=== PATIENT | female | born 1930 | race Caucasian/White ===

== ENCOUNTER 2016-09-22 08:38 | Emergency (ER) | payer MEDICARE, OTHER ==
[2016-09-22 08:44] VITALS: BP 168/86
--- NOTE | 2016-09-22 09:18 | EDM.PDOC ---
ED HPI GI/ABDOMINAL - General Chief Complaint: Abdominal Pain Stated Complaint: PAIN IN LOWER RT SIDE Time Seen by Provider: 09/22/16 09:00 Source of Information: Reports: Patient History Limitations: Reports: No limitations - History of Present Illness INITIAL COMMENTS - FREE TEXT/NARRATIVE: Patient presents today with right lower abdominal pain. States started noting increased discomfort yesterday but became much more severe at a 10/10 during the night. Patient has been having problems with burning and abdominal pain with urination during the night for several days now but this was more intense. No fevers. Nausea and dry heaves but no vomiting. Had a good appetite prior to this. Had a BM today which was normal. Feels bloated and has increased gas. History of appendectomy. Has had ovarian cyst on the left, no complication on the right. Symptom Onset Date: 09/21/16 Timing/Duration: Reports: Hour(s): Quality: Reports: burning, cramping, fullness Severity: severe Context: Denies: bad/questionable food, out of country travel, recent trauma, lifting Associated Symptoms (-Female): Reports: nausea/vomiting. Denies: chest pain, back pain, groin pain, shoulder pain, diarrhea, bloody stools, fever/chills, loss of appetite - Related Data Allergies/ADRs: Allergies Allergy/AdvReac Type Severity Reaction Status Date / Time No Known Allergies Allergy Verified 09/22/16 08:44 Home Meds: Home Meds Alendronate [Fosamax] 70 mg PO Q7D 09/22/16 [History] Aspirin [Adult Low Dose Aspirin EC] 81 mg PO DAILY 09/22/16 [History] Atropine 1% [Isopto Atropine 1% Ophth Soln] 1 drop EYERT Q48H 09/22/16 [History] Bimatoprost [LUMIGAN 0.01% Ophth Soln] 1 drop EYEBOTH QPM 09/22/16 [History] Brimonidine Tartrate [Alphagan P 0.1% Ophth Soln] 1 drop EYEBOTH BID 09/22/16 [ History] Cholecalciferol (Vitamin D3) [Vitamin D3] 1,000 units PO DAILY 09/22/16 [History ] Dorzolamide [Trusopt 2% Ophth Soln] 1 drop EYERT BID 09/22/16 [History] Levothyroxine [Synthroid] 50 mcg PO ACBREAKFAST 09/22/16 [History] Losartan [Cozaar] 50 mg PO DAILY 09/22/16 [History] Timolol [Betimol] 1 drop EYERT BID 09/22/16 [History] atorvaSTATin [Lipitor] 40 mg PO DAILY 09/22/16 [History] prednisoLONE Acetate [Prednisolone Acetate] 1 drop EYEBOTH QID 09/22/16 [History ] Past Medical History HEENT History: Reports: Impaired vision Cardiovascular History: Reports: Hypertension Gastrointestinal History: Reports: Hiatal hernia Endocrine/Metabolic History: Reports: Hypothyroidism - Past Surgical History HEENT Surgical History: Reports: Cataract surgery, Eye surgery GI Surgical History: Reports: Appendectomy, Junior fundoplication, Small bowel Female Surgical History: Reports: Hysterectomy ED ROS GENERAL - Review of Systems Review Of Systems: See Below Constitutional: Denies: fever, chills, malaise, weakness, decreased appetite HEENT: Denies: Ear discharge, Ear pain, Sinus problem, Throat pain, Vertigo Respiratory: Denies: Shortness of Breath, Cough Cardiovascular: Denies: Chest pain, Edema, Lightheadedness Endocrine: Denies: fatigue GI/Abdominal: Reports: Abdominal pain, Nausea. Denies: Constipation, Diarrhea, Hematochezia, Melena : Reports: dysuria, frequency Musculoskeletal: Reports: no symptoms Skin: Reports: no symptoms Neurological: Reports: No Symptoms ED EXAM, GI/ABD - Physical Exam Exam: See Below Exam Limited By: No limitations General Appearance: alert, WD/WN, no apparent distress Eyes: bilateral: normal appearance Ears: normal external exam, normal TMs Nose: normal inspection Throat/Mouth: Normal inspection, Normal oropharynx Head: normocephalic Neck: normal inspection, supple, non-tender Respiratory/Chest: no respiratory distress, lungs clear, normal breath sounds Cardiovascular: normal peripheral pulses, regular rate, rhythm GI/Abdominal: normal bowel sounds, soft Course - Vital Signs Last Recorded V/S: Last Vital Signs Temp 97.6 F 09/22/16 08:39 Pulse 111 H 09/22/16 08:39 Resp 20 09/22/16 08:39 BP 168/86 H 09/22/16 08:39 Pulse Ox 95 09/22/16 08:39 - Orders/Labs/Meds Orders: Active Orders 24 hr Category Date Time Status Abdomen 2V AP Flat Upright [CR] Stat Exams 09/22/16 08:53 Taken Labs: Laboratory Tests 09/22/16 09/22/16 09/22/16 Range/Units 08:51 08:52 08:53 WBC 10.3 H (5.0-10.0) 10^3/uL RBC 4.42 (4.00-5.50) 10^6/uL Hgb 13.7 (12.0-16.0) g/dL Hct 41.0 (37.0-47.0) % MCV 92.8 (82.0-94.0) fL MCH 31.0 (27.0-32.0) pg MCHC 33.4 (33.0-38.0) g/dL RDW Coeff of Brynn 13.4 (11.0-15.0) % Plt Count 232 (150-400) 10^3/uL Neut % (Auto) 86.2 H (35-85) % Lymph % (Auto) 5.8 L (10-55) % [place] % (Auto) 6.8 (0-16) % Eos % (Auto) 1.1 (0-5) % Baso % (Auto) 0.1 (0-3) % Neut # (Auto) 8.91 H (1.80-7.00) 10^3/uL Lymph # (Auto) 0.60 L (1.00-4.80) 10^3/uL [place] # (Auto) 0.70 (0.00-0.80) 10^3/uL Eos # (Auto) 0.11 (0.00-0.45) 10^3/uL Baso # (Auto) 0.01 10^3/uL Sodium 142 (136-145) mEq/L Potassium 4.1 (3.5-5.0) mEq/L Chloride 107 H (98-106) mEq/L Carbon Dioxide 28 (21-32) mmol/L BUN 26 H (7-18) mg/dL Creatinine 1.2 H (0.6-1.0) mg/dL Est Cr Clr Drug Dosing 32.67 mL/min Estimated GFR (MDRD) 43 L (>=60) mL/min Glucose 123 H (75-99) mg/dL Calcium 9.4 (8.4-10.1) mg/dL Total Bilirubin 0.5 (0.0-1.0) mg/dL AST 24 (15-37) U/L ALT 20 (12-78) U/L Alkaline Phosphatase 96 (46-116) U/L C-Reactive Protein < 0.2 L (0.2-0.8) mg/dL Total Protein 7.4 (6.4-8.2) g/dL Albumin 3.7 (3.4-5.0) g/dL Urine Color Yellow (YELLOW) Urine Appearance Slightly cloudy (CLEAR) Urine pH 5.0 (4.5-8.0) Ur Specific [place] 1.024 H (1.003-1.020) Urine Protein Negative (NEGATIVE) mg/dL Urine Glucose (UA) Negative (NEGATIVE) mg/dL Urine Ketones Negative (NEGATIVE) mg/dL Urine Occult Blood Negative (NEGATIVE) Urine Nitrite Negative (NEGATIVE) Urine Bilirubin Negative (NEGATIVE) Urine Urobilinogen 0.2 (0.2-1.0) EU/dL Ur Leukocyte Esterase Small H (NEGATIVE) Urine RBC 0-5 (0-5) /HPF Urine WBC 10-20 H (0-5) /HPF Urine WBC Clumps Occasional H (NOT SEEN) /HPF Ur Squamous Epith Cells Moderate H (NOT SEEN) /HPF Urine Bacteria Few H (NOT SEEN) /HPF Urinalysis Comment - Re-Assessments/Exams Free Text/Narrative Re-Assessment/Exam: 09/22/16 09:44 labs reviewed. urine positive. Does show clue cells as well. Abdominal xray shows moderate amount of stool. advised patient of results. Departure - Departure Time of Disposition: 09:45 Disposition: Home, Self-Care 01 Condition: good Clinical Impression: UTI (urinary tract infection) Qualifiers: Urinary tract infection type: acute cystitis Hematuria presence: without hematuria Qualified Code(s): N30.00 - Acute cystitis without hematuria Forms: ED Department Discharge Additional Instructions: 1. Push fluids 2. Meds for constipation as needed 3. Ibuprofen 400 mg every 6 hours as needed for pain. Take with food 4. Bactrim DS one twice a food for 10 days 5. Follow up in 10 days for repeat urine - My Orders Last 24 Hours: My Active Orders 09/22/16 08:53 Abdomen 2V AP Flat Upright [CR] Stat - Assessment/Plan Last 24 Hours: My Active Orders 09/22/16 08:53 Abdomen 2V AP Flat Upright [CR] Stat
[2016-09-22 09:20] LABS: CHLORIDE,CL 107 mEq/L (98-106); SODIUM,NA 142 mEq/L (136-145)
== END 2016-09-22 10:05 | disposition home or self-care (01) ==
LOC: MERGE 08:38 → CC.ED 08:38
DX: N30.00 Acute cystitis without hematuria (principal); I10 Essential (primary) hypertension; E03.9 Hypothyroidism, unspecified; Z79.82 Long term (current) use of aspirin; Z79.899 Other long term (current) drug therapy; Z98.49 Cataract extraction status, unspecified eye; Z90.49 Acquired absence of other specified parts of digestive tract; Z90.710 Acquired absence of both cervix and uterus
CPT/HCPCS: 36415; 74020; 80053; 81001; 85025; 86140; 99283; 99284

== ENCOUNTER 2020-03-13 21:00 | Emergency (ER) | payer MEDICARE, OTHER ==
[2020-03-13] MEDS ORDERED: predniSONE 20 MG Tab PO ONE (21:01)
[2020-03-13 22:05] VITALS: BP 176/84; PULSE 71
--- NOTE | 2020-03-13 22:34 | EDM.PDOC ---
ED HPI GENERAL MEDICAL PROBLEM - General Chief Complaint: ENT Problem Stated Complaint: "can't swallow" Time Seen by Provider: 03/13/20 21:45 Source of Information: Reports: Patient, RN History Limitations: Reports: No Limitations - History of Present Illness INITIAL COMMENTS - FREE TEXT/NARRATIVE: States that she was exposed to COVID 7 days ago and started having symptoms 5 da ys ago. These included sore ears, chills, diarrhea. She does have history of chronic SOB that has been worked up extensively and she doesn't feel that is worse. "My chest is OK". sore throat started yesterday and at 1600 today she started having difficulty swallowing her spit. She states that she keeps having white mucus coming up into her mouth. If she tries to drink water it wants to come back up. Occasional cough. No diarrhea today. Eating and drinking normally until 1600 today. Onset: Gradual Associated Symptoms: Reports: Cough, Fever/Chills. Denies: Chest Pain, cough w sputum sore throat Pain Score (Numeric/FACES): 10 - Related Data Allergies Allergy/AdvReac Type Severity Reaction Status Date / Time No Known Allergies Allergy Verified 03/13/20 21:12 Home Meds: Home Meds Aspirin [Low Dose Aspirin EC] 81 mg PO DAILY 10/15/13 [History] Calcium Carbonate/Vitamin D3 [Calcium 600 + Vit D 400] 2 each PO DAILY 10/15/13 [History] Flaxseed Oil [Flax Oil] 2,000 mg PO DAILY 10/15/13 [History] Bimatoprost [LUMIGAN 0.01% Ophth Soln] 1 drop EYEBOTH QPM 09/22/16 [History] Brimonidine Tartrate [Alphagan P 0.1% Ophth Soln] 1 drop EYEBOTH TID 09/22/16 [History] Cholecalciferol (Vitamin D3) [Vitamin D3] 1,000 units PO DAILY 09/22/16 [History] Losartan [Cozaar] 100 mg PO DAILY 09/22/16 [History] timoloL maleate [Timoptic 0.5% Ophth Soln] 1 drop EYEBOTH BID 03/13/20 [History] Past Medical History HEENT History: Reports: Impaired Vision Cardiovascular History: Reports: Hypertension Respiratory History: Reports: SOB Gastrointestinal History: Reports: Hiatal Hernia Endocrine/Metabolic History: Reports: Hypothyroidism - Past Surgical History HEENT Surgical History: Reports: Cataract Surgery, Eye Surgery GI Surgical History: Reports: Appendectomy, Junior Fundoplication, Small Bowel Female Surgical History: Reports: Hysterectomy Social & Family History - Tobacco Use Tobacco Use Status *Q: Never Tobacco User Second Hand Smoke Exposure: No - Caffeine Use Caffeine Use: Reports: None ED ROS ENT - Review of Systems Review Of Systems: See Below Constitutional: Reports: Fever (99 at home.), Chills HEENT: Reports: Other (difficulty swallowing.) Respiratory: Reports: Shortness of Breath (see HPI), Cough Cardiovascular: Reports: No Symptoms GI/Abdominal: Reports: Diarrhea (yesterday) : Reports: No Symptoms Musculoskeletal: Reports: No Symptoms Skin: Reports: No Symptoms Neurological: Reports: No Symptoms ED EXAM, ENT - Physical Exam Exam: See Below Exam Limited By: No Limitations General Appearance: Alert, WD/WN, Mild Distress. No: Anxious Ears: Normal External Exam, Normal Canal, Normal TMs Nose: Normal Inspection Mouth/Throat: Normal Inspection, Normal Oropharynx, Other (spitting up thick white foamy mucus.). No: Tongue Swelling Head: Atraumatic, Normocephalic Neck: Normal Inspection, Supple Respiratory/Chest: No Respiratory Distress, Lungs Clear, Normal Breath Sounds Cardiovascular: Regular Rate, Rhythm, No Edema GI/Abdominal: Normal Bowel Sounds, Soft, Non-Tender Extremities: No Pedal Edema, Normal Capillary Refill Neurological: Alert, Oriented Skin: Warm, Dry, Intact Course - Vital Signs Last Recorded V/S: Last Vital Signs Temp 98.9 F 03/13/20 22:04 Pulse 71 03/13/20 22:04 Resp 20 03/13/20 22:04 BP 176/84 H 03/13/20 22:04 Pulse Ox 95 03/13/20 22:04 - Orders/Labs/Meds Orders: Active Orders 24 hr Category Date Time Status Isolation [COMM] Routine Oth 03/13/20 21:50 Active Labs: Laboratory Tests 03/13/20 03/13/20 03/13/20 Range/Units 21:49 21:50 21:50 WBC 5.6 (5.0-10.0) 10^3/uL RBC 4.18 (4.00-5.50) 10^6/uL Hgb 12.8 (12.0-16.0) g/dL Hct 38.2 (37.0-47.0) % MCV 91.4 (82.0-94.0) fL MCH 30.6 (27.0-32.0) pg MCHC 33.5 (33.0-38.0) g/dL RDW Coeff of Brynn 14.1 (11.0-15.0) % Plt Count 165 (150-400) 10^3/uL Neut % (Auto) 64.1 (35-85) % Lymph % (Auto) 19.5 (10-55) % [place] % (Auto) 15.8 (0-16) % Eos % (Auto) 0.4 (0-5) % Baso % (Auto) 0.2 (0-3) % Neut # (Auto) 3.61 (1.80-7.00) 10^3/uL Lymph # (Auto) 1.10 (1.00-4.80) 10^3/uL [place] # (Auto) 0.89 H (0.00-0.80) 10^3/uL Eos # (Auto) 0.02 (0.00-0.45) 10^3/uL Baso # (Auto) 0.01 10^3/uL D-Dimer, Quantitative (0.00-0.50) Sodium 144 (136-145) mEq/L Potassium 3.2 L (3.5-5.0) mEq/L Chloride 108 H (98-106) mEq/L Carbon Dioxide 25 (21-32) mmol/L BUN 20 H (7-18) mg/dL Creatinine 1.3 H (0.6-1.0) mg/dL Est Cr Clr Drug Dosing 29.09 mL/min Estimated GFR (MDRD) 39 L (>=60) mL/min Glucose 110 H (75-99) mg/dL Lactic Acid (0.4-2.0) mmol/L Calcium 9.7 (8.4-10.1) mg/dL Magnesium 2.0 (1.8-2.4) mg/dL Total Bilirubin 0.2 (0.0-1.0) mg/dL AST 24 (15-37) U/L ALT 21 (12-78) U/L Alkaline Phosphatase 83 (46-116) U/L C-Reactive Protein 2.6 H (0.2-0.8) mg/dL Total Protein 7.4 (6.4-8.2) g/dL Albumin 3.7 (3.4-5.0) g/dL SARS CoV-2 RNA Rapid CHAYA Positive H (NEGATIVE) 03/13/20 03/13/20 Range/Units 21:50 21:52 WBC (5.0-10.0) 10^3/uL RBC (4.00-5.50) 10^6/uL Hgb (12.0-16.0) g/dL Hct (37.0-47.0) % MCV (82.0-94.0) fL MCH (27.0-32.0) pg MCHC (33.0-38.0) g/dL RDW Coeff of Brynn (11.0-15.0) % Plt Count (150-400) 10^3/uL Neut % (Auto) (35-85) % Lymph % (Auto) (10-55) % [place] % (Auto) (0-16) % Eos % (Auto) (0-5) % Baso % (Auto) (0-3) % Neut # (Auto) (1.80-7.00) 10^3/uL Lymph # (Auto) (1.00-4.80) 10^3/uL [place] # (Auto) (0.00-0.80) 10^3/uL Eos # (Auto) (0.00-0.45) 10^3/uL Baso # (Auto) 10^3/uL D-Dimer, Quantitative 1.39 H (0.00-0.50) Sodium (136-145) mEq/L Potassium (3.5-5.0) mEq/L Chloride (98-106) mEq/L Carbon Dioxide (21-32) mmol/L BUN (7-18) mg/dL Creatinine (0.6-1.0) mg/dL Est Cr Clr Drug Dosing mL/min Estimated GFR (MDRD) (>=60) mL/min Glucose (75-99) mg/dL Lactic Acid 0.5 (0.4-2.0) mmol/L Calcium (8.4-10.1) mg/dL Magnesium (1.8-2.4) mg/dL Total Bilirubin (0.0-1.0) mg/dL AST (15-37) U/L ALT (12-78) U/L Alkaline Phosphatase (46-116) U/L C-Reactive Protein (0.2-0.8) mg/dL Total Protein (6.4-8.2) g/dL Albumin (3.4-5.0) g/dL SARS CoV-2 RNA Rapid CHAYA (NEGATIVE) Meds: Medications Discontinued Medications Generic Name Dose Route Start Last Admin Trade Name Stan PRN Reason Stop Dose Admin Prednisone 1 packet 03/13/20 23:32 Take Home: Prednisone 20 Mg, 2 Tab Pack PO 03/13/20 23:33 ONETIME ONE - Re-Assessments/Exams Free Text/Narrative Re-Assessment/Exam: 03/13/20 [id number] Discussed case with Scott Little- hospitalist at [facility]. He does not feel that this symptom is related to COVID. He suggested talking to ER MD and see if they would be able to do laryngoscope and see if anything was obstructed. While on the phone she states that she was able to get out more mucus and now feels better. She was then given water and could sip on it and swallow it and able to keep it down. She states that it still hurts but it does not feel obstructed any longer. She feels that she is now safe to go home. If this reoccurs then she would need to see ENT for workup. Departure - Departure Time of Disposition: 23:33 Disposition: Home, Self-Care 01 Condition: Fair Clinical Impression: Pharyngitis, COVID-19 - Discharge Information *PRESCRIPTION DRUG MONITORING PROGRAM REVIEWED*: Not Applicable *COPY OF PRESCRIPTION DRUG MONITORING REPORT IN PATIENT NITHYA: Not Applicable Instructions: COVID-19 Frequently Asked Questions, Pharyngitis Referrals: PCP,None [Primary Care Provider] - Forms: ED Department Discharge Additional Instructions: prednisone 40 mg daily for 4 additional days orally- start tomorrow Push fluids as tolerated If not able to swallow return to the ER. Sepsis Event Note (ED) - Evaluation Sepsis Screening Result: No Definite Risk - Focused Exam Vital Signs: Vital Signs Temp Pulse Resp BP Pulse Ox 03/13/20 22:04 98.9 F 71 20 176/84 H 95 03/13/20 21:05 98.9 F 80 20 173/96 H 97 - Problem List & Annotations (1) COVID-19 SNOMED Code(s): 958407545 Code(s): U07.1 - COVID-19 Status: Acute Priority: High Current Visit: Yes (2) Pharyngitis SNOMED Code(s): 285220219 Code(s): J02.9 - ACUTE PHARYNGITIS, UNSPECIFIED Status: Acute Priority: High Current Visit: Yes Qualifiers: Pharyngitis/tonsillitis etiology: unspecified etiology Qualified Code(s): J02.9 - Acute pharyngitis, unspecified - Problem List Review Problem List Initiated/Reviewed/Updated: Yes - My Orders Last 24 Hours: My Active Orders 03/13/20 21:50 Isolation [COMM] Routine - Assessment/Plan Last 24 Hours: My Active Orders 03/13/20 21:50 Isolation [COMM] Routine
[2020-03-13] MEDS ORDERED: Take Home: predniSONE 20 MG, 2 Tab Pack PO ONE (23:32)
== END 2020-03-13 23:50 | disposition home or self-care (01) ==
LOC: CC.ED 21:00
DX: U07.1 COVID-19 (principal); J02.9 Acute pharyngitis, unspecified; I10 Essential (primary) hypertension; Z79.899 Other long term (current) drug therapy
CPT/HCPCS: 36415; 80053; 83605; 83735; 85025; 85379; 86140; 87430; 87804; 99284; J7512; U0002